=== PATIENT | male | born 1955 | race Caucasian/White ===

== ENCOUNTER 2018-08-13 16:34 | Emergency (ER) | payer OTHER ==
--- NOTE | 2018-08-13 20:09 | EDPHY ---
H & P Time Seen by Provider: 08/13/18 18:20 HPI/ROS: Chief complaint: Hip injury from skiing History of present illness: This is a 63-year-old male who presents to the emergency department for hip injury from skiing. Patient was skiing earlier today when he lost control. His skis twisted his leg the landed onto the hip. Since then he has had pain. He is able ambulate although it does cause discomfort. Pain is over the anterior surface of the hip. Worse with pressure in this region as well as certain movements, particularly flexing of the hip. He has fractured this region previously as a teenager. No report of abnormal coolness or paresthesias in the leg. No report of trauma to other parts of the body. Smoking Status: Never smoked Physical Exam: General: Alert, nontoxic. Skin: No lesions consistent with trauma to the left hip. Musculoskeletal: There is tenderness to palpation over the left anterior pelvis. The rest of the pelvis and hip are nontender. It is stable to rocking motion. He has good passive range of motion all matute. Flexion against resistance does cause discomfort. The rest the leg is unremarkable. Vascular: DP and PT pulses 2+. Neurologic: Sensation intact throughout the left leg. Constitutional: Initial Vital Signs Temperature (C) 37.1 C 08/13/18 16:35 Heart Rate 68 08/13/18 16:35 Respiratory Rate 16 08/13/18 16:35 Blood Pressure 136/91 H 08/13/18 16:35 O2 Sat (%) 96 08/13/18 16:35 O2 Delivery Mode Room Air Allergies/Adverse Reactions: latex Allergy (Mild, Verified 08/13/18 16:39) Rash Home Medications: Medication Instructions Recorded Aspirin EC [Aspirin EC 81 mg (*)] 81 mg PO DAILY 08/13/18 Atorvastatin Calcium [Lipitor 20 20 mg PO DAILY 08/13/18 mg (*)] Hydrocodone/APAP 5/325 [Concord 1 tab PO Q6H #10 tab 08/13/18 5/325 (*)] Lisinopril [Zestril 5 mg (*)] 5 mg PO 08/13/18 MDM/Departure - MDM Imaging: I viewed and interpreted images myself ED Course/Re-evaluation: Patient is discussed with my secondary supervising physician Dr. Duy Fall. Patient presents for a left hip injury. The left leg is neurovascularly intact. By history and physical exam no evidence of trauma to other parts of the body. X-rays obtained and negative for acute fracture. However, given persistent discomfort I have offered further imaging including CT scan to further assess for acute fracture. Patient has declined. He would like to see how other next few days go in terms of rest. I have asked him to follow up with Orthopedics and provided referral information. The he understands he can return if pain persists for further evaluation. Patient voiced understanding and agreement with plan. Differential Diagnosis: Included but not limited to contusion, sprain or strain, fracture - Depart Disposition: Home, Routine, Self-Care Clinical Impression: Hip pain Qualifiers: Laterality: left Qualified Code(s): M25.552 - Pain in left hip Condition: Good Instructions: Hydrocodone/Acetaminophen (By mouth), Hip Pain (ED) Additional Instructions: Follow-up with orthopedics for continued evaluation and care In regards to pain control see the following: Use ibuprofen [600] mg [3] times a day for the next 2-3 days for pain In addition You have been prescribed [Concord] for pain. [Concord] contains Tylenol, do not take extra Tylenol/acetaminophen/Apap with it. It is sedating. You were offered to CT scan this evening. You reported you are comfortable not pursuing this at this time. If symptoms worsen or new symptoms develop return to the emergency room for recheck Prescriptions: Hydrocodone/APAP 5/325 [Concord 5/325 (*)] 1 tab PO Q6H #10 tab Referrals: Duy Spear MD [Primary Care Provider] - As per Instructions Jaye Saldana MD [Medical Doctor] - As per Instructions
[2018-08-13 20:17] VITALS: BP 130/87
== END 2018-08-13 20:20 | disposition home or self-care (01) ==
DX: M25.552 Pain in left hip (principal); V00.321A Fall from snow-skis, initial encounter; Y93.23 Activity, snow (alpine) (downhill) skiing, snowboarding, sledding, tobogganing and snow tubing; Y92.838 Other recreation area as the place of occurrence of the external cause; Z91.040 Latex allergy status

== ENCOUNTER → 2019-02-04 | Outpatient (CLI) | payer OTHER | LOC: FLAB 09:21 ==